=== PATIENT | male | born 1990 | race African-American/Black ===

== ENCOUNTER 2022-07-14 21:47 | Emergency (ER) | payer BC, MEDICAID, OTHER ==
[~2022-07-14] VITALS: Ht 180.3 cm; Wt 87.0 kg
[2022-07-14 21:48] VITALS: BP 92/75
[2022-07-14] MEDS ORDERED: SODIUM CHLORIDE 0.9% 1,000 ML IV ONE (22:15)
[2022-07-14 23:06] LABS: BASOPHILS % 0.1 % (0.0-2.0); EOSINOPHILS % 0.1 % (0.0-5.0); HEMATOCRIT. 39.9 % (42.0-52.0); HEMOGLOBIN. 13.4 g/dL (14.0-18.0); LYMPHOCYTES % 10.7 % (20.0-50.0); MEAN CORPUSCULAR HEMOGLOBIN 27.1 pg (28.0-32.0); MEAN CORPUSCULAR VOLUME 80.8 fL (80.0-94.0); MEAN PLATELET VOLUME 7.9 fl (7.4-10.4); MONOCYTES % 10.9 % (2.0-8.0); NEUTROPHILS % 78.2 % (40.0-76.0); PLATELET 235 x1000/uL (130-400); RED BLOOD CELL COUNT 4.94 mill/uL (4.7-6.1); RED CELL DISTRIBUTION WIDTH 13.3 % (11.6-14.6)
[2022-07-14 23:16] LABS: INR 1.1; PROTHROMBIN TIME 11.4 sec (9.6-11.0)
[2022-07-14 23:17] LABS: CHLORIDE 101 mEq/L (98-107)
== END 2022-07-15 00:59 | disposition home or self-care (01) ==
LOC: ER 21:47 → CANBEDREQ 07-15 15:56
DX: R53.1 Weakness (principal); R42 Dizziness and giddiness; R51.9 Headache, unspecified
CPT/HCPCS: 36415; 71045; 80053; 83605; 84145; 85025; 85610; 87040; 93005; 99285; J7030